=== PATIENT | male | born 1995 | race Hispanic/Latino ===

== ENCOUNTER 2018-10-18 08:53 | Emergency (ER) | payer MEDICAID ==
[2018-10-18 09:17] VITALS: O2SAT 100
--- NOTE | 2018-10-18 09:28 | ED PDOC ---
HPI: SOB/CHF/COPD Time Seen by Provider: 10/18/18 09:22 Chief Complaint (Nursing): Respiratory Distress Chief Complaint (Provider): Back pain History Per: Patient History/Exam Limitations: no limitations Additional Complaint(s): Pt reports sudden onset R sided back pain this AM. 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 Pt has h/o two chest tubes on R and one on L in past. Denies CP, cough, fever. Past Medical History Reviewed: Nursing Documentation, Vital Signs Vital Signs: Last Vital Signs Temp Pulse 79 10/18/18 09:22 Resp 23 10/18/18 09:22 BP 115/76 10/18/18 09:22 Pulse Ox 100 10/18/18 09:22 - Medical History Other PMH: Liz Danlos - Surgical History Other surgeries: Thoracostomy, R rotator cuff - Family History Family History: States: Unknown Family Hx - Social History Current smoker - smoking cessation education provided: No Alcohol: None - Home Medications Home Medications: Ambulatory Orders Medication Instructions Recorded Ascorbic Acid [Vitamin C 500 mg 500 mg PO DAILY 10/18/18 Tab] Atenolol [Tenormin] 50 mg PO DAILY 10/18/18 Ferrous Sulfate [Feosol] 325 mg PO DAILY 10/18/18 - Allergies Allergies/Adverse Reactions: Allergies Allergy/AdvReac Type Severity Reaction Status Date / Time No Known Allergies Allergy Verified 10/18/18 09:24 Review of Systems Constitutional: Negative for: Fever, Chills Cardiovascular: Negative for: Chest Pain, Palpitations Respiratory: Positive for: Shortness of Breath. Negative for: Cough Musculoskeletal: Positive for: Back Pain Neurological: Negative for: Headache Physical Exam - Reviewed Nursing Documentation Reviewed: Yes Vital Signs Reviewed: Yes - Physical Exam Appears: Positive for: Well, No Acute Distress (Speaking full sentences) Head Exam: Positive for: ATRAUMATIC, NORMAL INSPECTION Skin: Positive for: Normal Color, Warm, Dry Eye Exam: Positive for: Normal appearance, EOMI, PERRL Neck: Positive for: Normal, Painless ROM, Supple Cardiovascular/Chest: Positive for: Regular Rate, Rhythm Respiratory: Positive for: Decreased Breath Sounds (R base). Negative for: Accessory Muscle Use, Crackles, Respiratory Distress Gastrointestinal/Abdominal: Positive for: Bowel Sounds Back: Positive for: Normal Inspection, Other (R mid back pain) Extremity: Positive for: Normal ROM Neurologic/Psych: Positive for: Alert, Oriented - Laboratory Results Result Diagrams: 10/18/18 09:30 10/18/18 09:30 - ECG O2 Sat by Pulse Oximetry: 100 - Critical Care Total Time (In Min): 75 Medical Decision Making Medical Decision Makin yo male with h/o Liz Danlos syndrome with R back pain. - labs - EKG - CXR - CT angio chest - IVF Accession No. : [id number] Patient Name / ID : ALISSA SPENCER / [id number] Exam Date : 10/18/2018 09:16:14 ( Approved ) Study Comment : Sex / Age : M / 23Y Creator : Tito Ku MD Dictator : Tito Ku MD Renewals Manager : Hospice Care Consultant : Tito Ku MD Approver2 : Report Date : 10/18/2018 09:55:48 My Comment : Date of service: 10/18/2018 HISTORY: R back pain, h/o hemothoraces COMPARISON: None available. TECHNIQUE: Chest one view . FINDINGS: LUNGS: There is evidence of postsurgical change of the right lung with multiple sutures seen in the right upper and lower lung real. There is consolidation versus mass in the right lower lung field measuring approximately 11 x 7.9 cm and demonstrating lobulation as well as areas of lucency. Area of focal scarring noted in the right upper lobe. Postsurgical changes also noted of the left lung with sutures at the left lung apex. PLEURA: Small bilateral pleural effusions, left greater than right. CARDIOVASCULAR: Heart size is within normal limits. No atherosclerotic calcification present. There are mediastinal surgical clips. OSSEOUS STRUCTURES: No acute fracture identified. Mild dextroscoliosis of the thoracic spine, centered at the mid level. VISUALIZED UPPER ABDOMEN: Unremarkable. OTHER FINDINGS: None. IMPRESSION: Postsurgical changes of the lungs as above. There is consolidation versus mass in the right lower lung field measuring approximately 11 x 7.9 cm and de monstrating lobulation as well as areas of lucency. Consider CT chest for further evaluation. Accession No. : [id number] Patient Name / ID : ALISSA SPENCER / [id number] Exam Date : 10/18/2018 09:44:50 ( Approved ) Study Comment : Sex / Age : M / 23Y Creator : Tito Ku MD Dictator : Tito Ku MD Renewals Manager : Hospice Care Consultant : Tito Ku MD Approver2 : Report Date : 10/18/2018 11:14:52 My Comment : PROCEDURE: CT Angiography Chest, Abdomen and Pelvis with and without intravenous contrast HISTORY: R back pain, Liz Danlos COMPARISON: Chest x-ray performed earlier same day TECHNIQUE: Contiguous axial images of the chest, abdomen and pelvis were obtained in the phase of aortic enhancement. A noncontrast enhanced CT of the chest was also obtained to evaluate for possible intramural thrombus. Coronal and sagittal reformats were generated. IV dose administered: 99 cc Visipaque 320 IV contrast Radiation dose: Total exam DLP = 795.43 mGy-cm. This CT exam was performed using one or more of the following dose reduction techniques: Automated exposure control, adjustment of the mA and/or kV according to patient size, and/or use of iterative reconstruction technique. FINDINGS: CT ANGIOGRAPHY OF THE CHEST WITH & WITHOUT CONTRAST: AORTA (CHEST AND ABDOMEN): The thoracic and abdominal aorta are unremarkable, without aneurysm, dissection or rupture. No intramural thrombus identified in the thoracic aorta on the non-contrast ct of the chest. Thoracic and abdominal aorta are normal in caliber. The celiac axis, superior mesenteric artery, inferior mesenteric artery and the renal arteries are patent. The pelvic arteries are unremarkable. LUNGS: Large cavitary mass noted occupying majority of the right lower lobe. The solid component of the cavitary lesion measures approximately 9.8 x 7.5 cm (CC by ML). This may represent a fungal ball such as aspergilloma; hematoma is also a consideration. There is beading/nodularity along the minor fissure, likely small foci of hemorrhage. Mild right basilar atelectasis. The trachea and major segmental bronchi are patent. MEDIASTINUM: Heart size is mildly enlarged. There is no significant pericardial effusion. LYMPH NODES: There is no significant axillary, mediastinal, or hilar lymphadenopathy. PLEURA: Focal area of pleural thickening noted of the right lower lobe posteriorly measuring 8 x 3.1 cm; differential considerations include hematoma or possibly granulation tissue. Small adjacent right pleural effusion. There are areas of hyperdensity along the posterior medial aspects of the pleura measuring 3.6 cm and 1.3 cm as well as anteromedial aspects, measuring 1.6 cm, 3.2 x 5.9 cm, and 1.7 cm. These likely represent small hematomas. These all demonstrate areas of focal increased density within, suggestive of active hemorrhage. There are additional areas of hyperdensity in the left upper lung medially measuring 2.9 x 1.2 cm and right upper lung medially measuring 1.9 x 1 cm, also likely hematomas. Areas of focal increased density are noted within these regions, suggestive of active hemorrhage. Additional smaller areas of hyperdenisty/hematomas also seen. BONES: No acute fracture identified. OTHER FINDINGS: Visualized portions of the thyroid gland are unremarkable. CT ANGIOGRAPHY OF THE ABDOMEN AND PELVIS WITH CONTRAST: LIVER: Unremarkable. GALLBLADDER AND BILE DUCTS: Unremarkable. PANCREAS: Unremarkable. SPLEEN: Enlarged measuring 14.2 cm in transverse dimension. Craniocaudad dimension. ADRENALS: Unremarkable. KIDNEYS AND URETERS: Unremarkable. No hydronephrosis. VASCULATURE: See above STOMACH AND BOWEL: There is no abnormal small or large bowel dilatation. Mild scattered diverticulosis of the descending colon without evidence of diverticulitis. APPENDIX: Normal appendix. PERITONEUM: Unremarkable. No free fluid. No free air. LYMPH NODES: There is no significant abdominal or pelvic lymphadenopathy BLADDER: Unremarkable. REPRODUCTIVE: Prostate is unremarkable. There is fullness of the bilateral seminal vesicles. BONES: No acute fracture identified. OTHER FINDINGS: None. IMPRESSION: Large cavitary lesion occupying majority of the right lower lobe with an internal solid component measuring 9.8 cm. Differential considerations include fungal ball such as aspergilloma, tuberculosis, or possible hemorrhage/hematoma. Multiple areas of hyperdensity within the periphery of the lungs as described above with internal areas of increased density. Findings likely represent hematomas with active areas of hemorrhage. Large area of focal pleural thickening along the right lower lobe posteriorly measuring up to 8 cm, also suspicious for hematoma. Granulation tissue could also be considered. Additional findings as above. 11:[address] Canales (Thoracic surgeon), call optometrist president/practice owner to evaluate patient. 11:35 Spoke to surgical attendant. ETA one hour. 14:00 optometrist president/practice owner recommends pt be transferred to tertiary care center (as per Dr. Canales). 14:[address] Efrain Sanchez (CT surgery), accepts transfer to [facility], ER to ER. 15:05 Pt to be transferred to [address] [place] [address] ([address]). Disposition - Clinical Impression Clinical Impression: Lung hemorrhage - Patient ED Disposition Is Patient to be Admitted: Transfer of Care - Disposition Disposition Time: 15:19 Condition: GUARDED Forms: [employer] (E[place]ian)
[2018-10-18] MEDS ORDERED: Sodium Chloride 0.9% 1,000 ML IV STA (09:31)
[2018-10-18] MEDS ORDERED: Sodium Chloride 0.9% 50 ML IV ONE (09:43)
[2018-10-18] MEDS ORDERED: Iodixanol 320 MG/ML 100 ML BOTTLE IV ONE (09:43)
[2018-10-18 09:47] LABS: BASO % 0.7 % (0.0-2.0); EOS # 0.1 K/uL (0.0-0.7); EOS % 1.8 % (0.0-4.0); HEMOGLOBIN 13.7 g/dL (12.0-18.0); LYMPH # 0.8 K/uL (1.0-4.3); LYMPH % 24.2 % (20.0-40.0); MEAN CELL VOLUME 92.4 fl (80.0-94.0); MEAN CORPUSCULAR HEMOGLOBIN 30.3 pg (27.0-31.0); MEAN CORPUSCULAR HGB CONC 32.8 g/dL (33.0-37.0); MEAN PLATELET VOLUME 8.1 fl (7.2-11.7); MONO # 0.3 K/uL (0.0-0.8); MONO % 10.1 % (0.0-10.0); NEUT # 2.2 K/uL (1.8-7.0); NEUT % 63.2 % (50.0-75.0); NRBC % 0.2 % (0.0-0.0); RBC 4.52 Mil/uL (4.40-5.90); RED CELL DISTRIBUTION WIDTH 14.5 % (11.5-14.5); WHITE BLOOD COUNT 3.4 K/uL (4.8-10.8)
[2018-10-18 09:53] LABS: ALB/GLOB RATIO 1.3 (1.0-2.1); ALBUMIN 4.4 g/dL (3.5-5.0); ALT/SGPT 56 U/L (21-72); AST/SGOT 43 U/L (17-59); BLOOD UREA NITROGEN 12 mg/dl (9-20); CALCIUM 9.2 mg/dL (8.4-10.2); GFR NON-AFRICAN AMERICAN > 60
[2018-10-18 09:57] LABS: PROTHROMBIN TIME 11.7 Seconds (9.8-13.1)
[2018-10-18 09:59] LABS: PARTIAL THROMBOPLASTIN TIME 32.2 Seconds (25.6-37.1)
--- NOTE | 2018-10-18 09:59 | RAD ---
Date of service: 10/18/2018 HISTORY: R back pain, h/o hemothoraces COMPARISON: None available. TECHNIQUE: Chest one view . FINDINGS: LUNGS: There is evidence of postsurgical change of the right lung with multiple sutures seen in the right upper and lower lung real. There is consolidation versus mass in the right lower lung field measuring approximately 11 x 7.9 cm and demonstrating lobulation as well as areas of lucency. Area of focal scarring noted in the right upper lobe. Postsurgical changes also noted of the left lung with sutures at the left lung apex. PLEURA: Small bilateral pleural effusions, left greater than right. CARDIOVASCULAR: Heart size is within normal limits. No atherosclerotic calcification present. There are mediastinal surgical clips. OSSEOUS STRUCTURES: No acute fracture identified. Mild dextroscoliosis of the thoracic spine, centered at the mid level. VISUALIZED UPPER ABDOMEN: Unremarkable. OTHER FINDINGS: None. IMPRESSION: Postsurgical changes of the lungs as above. There is consolidation versus mass in the right lower lung field measuring approximately 11 x 7.9 cm and demonstrating lobulation as well as areas of lucency. Consider CT chest for further evaluation.
[2018-10-18 10:41] LABS: URINE BILIRUBIN NEGATIVE (NEGATIVE); URINE BLOOD NEGATIVE (NEGATIVE); URINE CLARITY CLEAR (Clear); URINE COLOR STRAW (YELLOW); URINE GLUCOSE (UA) NEG (NEGATIVE); URINE LEUKOCYTE ESTERASE NEG Leu/uL (Negative); URINE PROTEIN NEGATIVE (NEGATIVE); URINE UROBILINOGEN 0.2-1.0 mg/dL (0.2-1.0)
[2018-10-18] MEDS ORDERED: Morphine 4 MG/ML VIAL ONE ×3 (10:56→17:14)
[2018-10-18] MEDS ORDERED: Morphine 4 MG/ML VIAL IV STA ×4 (11:11→17:15)
--- NOTE | 2018-10-18 11:18 | CT ---
PROCEDURE: CT Angiography Chest, Abdomen and Pelvis with and without intravenous contrast HISTORY: R back pain, Liz Danlos COMPARISON: Chest x-ray performed earlier same day TECHNIQUE: Contiguous axial images of the chest, abdomen and pelvis were obtained in the phase of aortic enhancement. A noncontrast enhanced CT of the chest was also obtained to evaluate for possible intramural thrombus. Coronal and sagittal reformats were generated. IV dose administered: 99 cc Visipaque 320 IV contrast Radiation dose: Total exam DLP = 795.43 mGy-cm. This CT exam was performed using one or more of the following dose reduction techniques: Automated exposure control, adjustment of the mA and/or kV according to patient size, and/or use of iterative reconstruction technique. FINDINGS: CT ANGIOGRAPHY OF THE CHEST WITH & WITHOUT CONTRAST: AORTA (CHEST AND ABDOMEN): The thoracic and abdominal aorta are unremarkable, without aneurysm, dissection or rupture. No intramural thrombus identified in the thoracic aorta on the non-contrast ct of the chest. Thoracic and abdominal aorta are normal in caliber. The celiac axis, superior mesenteric artery, inferior mesenteric artery and the renal arteries are patent. The pelvic arteries are unremarkable. LUNGS: Large cavitary mass noted occupying majority of the right lower lobe. The solid component of the cavitary lesion measures approximately 9.8 x 7.5 cm (CC by ML). This may represent a fungal ball such as aspergilloma; hematoma is also a consideration. There is beading/nodularity along the minor fissure, likely small foci of hemorrhage. Mild right basilar atelectasis. The trachea and major segmental bronchi are patent. MEDIASTINUM: Heart size is mildly enlarged. There is no significant pericardial effusion. LYMPH NODES: There is no significant axillary, mediastinal, or hilar lymphadenopathy. PLEURA: Focal area of pleural thickening noted of the right lower lobe posteriorly measuring 8 x 3.1 cm; differential considerations include hematoma or possibly granulation tissue. Small adjacent right pleural effusion. There are areas of hyperdensity along the posterior medial aspects of the pleura measuring 3.6 cm and 1.3 cm as well as anteromedial aspects, measuring 1.6 cm, 3.2 x 5.9 cm, and 1.7 cm. These likely represent small hematomas. These all demonstrate areas of focal increased density within, suggestive of active hemorrhage. There are additional areas of hyperdensity in the left upper lung medially measuring 2.9 x 1.2 cm and right upper lung medially measuring 1.9 x 1 cm, also likely hematomas. Areas of focal increased density are noted within these regions, suggestive of active hemorrhage. Additional smaller areas of hyperdenisty/hematomas also seen. BONES: No acute fracture identified. OTHER FINDINGS: Visualized portions of the thyroid gland are unremarkable. CT ANGIOGRAPHY OF THE ABDOMEN AND PELVIS WITH CONTRAST: LIVER: Unremarkable. GALLBLADDER AND BILE DUCTS: Unremarkable. PANCREAS: Unremarkable. SPLEEN: Enlarged measuring 14.2 cm in transverse dimension. Craniocaudad dimension. ADRENALS: Unremarkable. KIDNEYS AND URETERS: Unremarkable. No hydronephrosis. VASCULATURE: See above STOMACH AND BOWEL: There is no abnormal small or large bowel dilatation. Mild scattered diverticulosis of the descending colon without evidence of diverticulitis. APPENDIX: Normal appendix. PERITONEUM: Unremarkable. No free fluid. No free air. LYMPH NODES: There is no significant abdominal or pelvic lymphadenopathy BLADDER: Unremarkable. REPRODUCTIVE: Prostate is unremarkable. There is fullness of the bilateral seminal vesicles. BONES: No acute fracture identified. OTHER FINDINGS: None. IMPRESSION: Large cavitary lesion occupying majority of the right lower lobe with an internal solid component measuring 9.8 cm. Differential considerations include fungal ball such as aspergilloma, tuberculosis, or possible hemorrhage/hematoma. Multiple areas of hyperdensity within the periphery of the lungs as described above with internal areas of increased density. Findings likely represent hematomas with active areas of hemorrhage. Large area of focal pleural thickening along the right lower lobe posteriorly measuring up to 8 cm, also suspicious for hematoma. Granulation tissue could also be considered. Additional findings as above.
--- NOTE | 2018-10-18 14:50 | CP.PCM.CON ---
History of Present Illness - History of Present Illness History of Present Illness: 23M with PMHx of Eharsenio Hesters, spontaneous pneumothorax x3 s/p b/l pleurodesis ~5 years ago, presents to [facility] ED with complaints of shortness of breath and difficulty breathing. Patient states pain was of sudden onset this morning. Pat ient states pain is similar to the time where he was found to have a hemothorax about 1 month ago. Patient was hospitalized in [facility] where they conservatively managed his condition. Patient reports following up with specialists at [facility] and states at time of visit they recommended avoiding surgery unless complications were to arise. At times of examination patient was laying in bed with 2L NC saturating at 100%. Grimacing each time he inspires. States pain is localized in right lower hemithorax region. Denies fever/chills, nausea/vomiting, chest pain, abdominal pain, nausea/vomiting, diarrhea, dysuria. PMHx: as stated above PSurgHx: as stated above Allergies: NKDA Soc Hx: Denies smoking, denies illicit drug use Review of Systems - Review of Systems Review of Systems: 10 pt ROS unremarkable except as stated in HPI Past Patient History - Infectious Disease Hx of Infectious Diseases: None - Past Social History Alcohol: None - HEMATOLOGICAL/ONCOLOGICAL Other/Comment: BETTY-DANLOS SYNDROME - PSYCHIATRIC Hx Substance Use: No - SURGICAL HISTORY Other/Comment: HEMOTHORAX W/ CHEST TUBES- RIGHT LUNG X 2, LEFT LUNG X 1. ROTATOR CUFF REPAIR RIGHT SIDE. - ANESTHESIA Hx Anesthesia: Yes Hx Anesthesia Reactions: No Hx Malignant Hyperthermia: No Meds Allergies/Adverse Reactions: Allergies Allergy/AdvReac Type Severity Reaction Status Date / Time No Known Allergies Allergy Verified 10/18/18 09:24 Physical Exam - Constitutional Appears: Non-toxic, No Acute Distress - Head Exam Head Exam: NORMOCEPHALIC - Eye Exam Eye Exam: EOMI - ENT Exam ENT Exam: Mucous Membranes Moist - Respiratory Exam Respiratory Exam: Decreased Breath Sounds. absent: Accessory Muscle Use Additional comments: decrease breaths sounds in right lung Difficulty with deep inspiration - Cardiovascular Exam Cardiovascular Exam: +S1, +S2 - GI/Abdominal Exam GI & Abdominal Exam: Soft. absent: Tenderness - Neurological Exam Neurological exam: Alert, Oriented x3 - Psychiatric Exam Psychiatric exam: Normal Mood - Skin Skin Exam: Intact, Warm Results - Vital Signs Recent Vital Signs: Last Vital Signs Temp 98.2 F 10/18/18 10:50 Pulse 88 10/18/18 13:22 Resp 28 H 10/18/18 13:22 BP 123/76 10/18/18 13:22 Pulse Ox 100 10/18/18 14:26 - Labs Result Diagrams: 10/18/18 09:30 10/18/18 09:30 Labs: Laboratory Results - last 24 hr 10/18/18 10/18/18 10/18/18 09:30 09:30 09:30 WBC 3.4 L RBC 4.52 Hgb 13.7 Hct 41.7 MCV 92.4 MCH 30.3 MCHC 32.8 L RDW 14.5 Plt Count 285 MPV 8.1 Neut % (Auto) 63.2 Lymph % (Auto) 24.2 [place] % (Auto) 10.1 H Eos % (Auto) 1.8 Baso % (Auto) 0.7 Neut # (Auto) 2.2 Lymph # (Auto) 0.8 L [place] # (Auto) 0.3 Eos # (Auto) 0.1 Baso # (Auto) 0.0 PT INR APTT Sodium 141 Potassium 4.0 Chloride 103 Carbon Dioxide 28 Anion Gap 14 BUN 12 Creatinine 0.6 L Est GFR ( Amer) > 60 Est GFR (Non-Af Amer) > 60 Random Glucose 100 Calcium 9.2 Total Bilirubin 0.5 AST 43 ALT 56 Alkaline Phosphatase 76 Total Protein 7.8 Albumin 4.4 Globulin 3.4 Albumin/Globulin Ratio 1.3 Urine Color Urine Clarity Urine pH Ur Specific [place] Urine Protein Urine Glucose (UA) Urine Ketones Urine Blood Urine Nitrate Urine Bilirubin Urine Urobilinogen Ur Leukocyte Esterase Urine RBC (Auto) Urine Microscopic WBC Blood Type O POSITIVE Blood Type Confirm Antibody Screen Negative BBK History Checked No verified bt 10/18/18 10/18/18 10/18/18 09:30 10:25 10:32 WBC RBC Hgb Hct MCV MCH MCHC RDW Plt Count MPV Neut % (Auto) Lymph % (Auto) [place] % (Auto) Eos % (Auto) Baso % (Auto) Neut # (Auto) Lymph # (Auto) [place] # (Auto) Eos # (Auto) Baso # (Auto) PT 11.7 INR 1.0 APTT 32.2 Sodium Potassium Chloride Carbon Dioxide Anion Gap BUN Creatinine Est GFR ( Amer) Est GFR (Non-Af Amer) Random Glucose Calcium Total Bilirubin AST ALT Alkaline Phosphatase Total Protein Albumin Globulin Albumin/Globulin Ratio Urine Color Straw Urine Clarity Clear Urine pH 7.0 Ur Specific [place] > 1.060 H Urine Protein Negative Urine Glucose (UA) Neg Urine Ketones Negative Urine Blood Negative Urine Nitrate Negative Urine Bilirubin Negative Urine Urobilinogen 0.2-1.0 Ur Leukocyte Esterase Neg Urine RBC (Auto) 1 Urine Microscopic WBC 1 Blood Type Blood Type Confirm O POSITIVE Antibody Screen BBK History Checked Assessment & Plan - Assessment and Plan (Free Text) Assessment: 23M with right pleuritic pain and small active hemorrhages noted on CTA Plan: -Patient currently stable saturating at 100% on 2L NC -Due to patient's extensive cardiothoracic history and history of Laina Fierro recommend transfer to higher care facility D/w Dr. Parker Rodriguez PGY3
[2018-10-18 16:43] VITALS: BP 119/63; PULSE 83; RESP 20; TEMP 98.7
[2018-10-18] MEDS ORDERED: Morphine 4 MG/ML VIAL IV ONE (17:15)
--- NOTE | 2018-10-18 20:21 | CARD ---
APPROVED REPORT Date of service: 10/18/2018 EKG Measurement Heart [id number] <Conclusion> Normal sinus rhythm Normal ECG
== END 2018-10-18 17:22 | disposition short-term general hospital (02) ==
LOC: H.ER 08:53
DX: R04.89 Hemorrhage from other sites in respiratory passages (principal); Q79.6 Ehlers-Danlos syndromes; R07.81 Pleurodynia; Z79.899 Other long term (current) drug therapy; R06.02 Shortness of breath; M54.9 Dorsalgia, unspecified
CPT/HCPCS: 71045; 71275; 74175; 80053; 81003; 85025; 85610; 85730; 86850; 86900; 93005; 96360; 99285; J2270; J2405; J7030; Q9967

== ENCOUNTER 2018-12-07 20:55 | Inpatient (IN) | payer MEDICAID, OTHER ==
--- NOTE | 2018-12-07 21:15 | ED PDOC ---
HPI: Influenza Chief Complaint: Cough, Cold, Congestion Past Medical History Vital Signs: Last Vital Signs Temp 97.6 F 12/07/18 20:58 Pulse 65 12/07/18 20:58 Resp 18 12/07/18 20:58 BP 133/85 12/07/18 20:58 Pulse Ox 100 12/07/18 20:58 - Family History Family History: States: Unknown Family Hx - Home Medications Home Medications: Ambulatory Orders Medication Instructions Recorded Ascorbic Acid [Vitamin C 500 mg 500 mg PO DAILY 10/18/18 Tab] Atenolol [Tenormin] 50 mg PO DAILY 10/18/18 Ferrous Sulfate [Feosol] 325 mg PO DAILY 10/18/18 - Allergies Allergies/Adverse Reactions: Allergies Allergy/AdvReac Type Severity Reaction Status Date / Time No Known Allergies Allergy Verified 12/07/18 20:57 - ECG O2 Sat by Pulse Oximetry: 100 Disposition - Disposition
[2018-12-07] MEDS ORDERED: Sodium Chloride 0.9% 1,000 ML IV STA (21:22)
[2018-12-07 21:37] LABS: BASO % 0.5 % (0.0-2.0); EOS # 0.1 K/uL (0.0-0.7); EOS % 1.6 % (0.0-4.0); HEMOGLOBIN 12.3 g/dL (12.0-18.0); LYMPH # 2.1 K/uL (1.0-4.3); LYMPH % 29.2 % (20.0-40.0); MEAN CELL VOLUME 80.7 fl (80.0-94.0); MEAN CORPUSCULAR HEMOGLOBIN 26.3 pg (27.0-31.0); MEAN CORPUSCULAR HGB CONC 32.6 g/dL (33.0-37.0); MEAN PLATELET VOLUME 7.8 fl (7.2-11.7); MONO # 0.6 K/uL (0.0-0.8); MONO % 8.1 % (0.0-10.0); NEUT # 4.3 K/uL (1.8-7.0); NEUT % 60.6 % (50.0-75.0); RBC 4.66 Mil/uL (4.40-5.90); RED CELL DISTRIBUTION WIDTH 18.3 % (11.5-14.5); WHITE BLOOD COUNT 7.1 K/uL (4.8-10.8)
[2018-12-07 21:46] LABS: PROTHROMBIN TIME 11.6 Seconds (9.8-13.1)
--- NOTE | 2018-12-07 21:47 | ED PDOC ---
HPI: CCC, URI, Sore Throat Time Seen by Provider: 12/07/18 21:14 Chief Complaint (Nursing): Cough, Cold, Congestion History Per: Patient Have you had recent travel within the past 21 days to any of the following countries: [place], [place], [place] or [place]?: No Onset/Duration Of Symptoms: Hrs Current Symptoms Are (Timing): Intermittent Episodes Additional Complaint(s): Hx of Ehler Danlos syndrome presenting with tasting blood in the back of his throat. States that he blood vessel burst in his R lung in 2018 and he states that the tasting of his blood was one of the earlier symptoms. He has had multiple chest tubes and recently had a thorcoscopic exploration with the intention of a R lower lobectomy but it was unsuccessful because of scar tissue (At [facility]). He also had a bronchial trach procedure to remove fluid on the R side of the lung. Today he states he didn't actually cough up any blood but he is coughing and he tastes the blood. Denies chest pain, back pain, or shortness of breath currently. Patient states that he feels lightheaded but states he did not eat all day. Past Medical History Reviewed: Historical Data, Nursing Documentation, Vital Signs Vital Signs: Last Vital Signs Temp 97.6 F 12/07/18 20:58 Pulse 65 12/07/18 20:58 Resp 18 12/07/18 20:58 BP 133/85 12/07/18 20:58 Pulse Ox 100 12/07/18 20:58 - Medical History Other PMH: Ehler-Danlos - Family History Family History: States: Unknown Family Hx - Home Medications Home Medications: Ambulatory Orders Medication Instructions Recorded Atenolol [Tenormin] 50 mg PO DAILY 10/18/18 - Allergies Allergies/Adverse Reactions: Allergies Allergy/AdvReac Type Severity Reaction Status Date / Time No Known Allergies Allergy Verified 12/07/18 20:57 Review of Systems ROS Statement: Except As Marked, All Systems Reviewed And Found Negative Respiratory: Positive for: Cough. Negative for: Hemoptysis Physical Exam - Reviewed Nursing Documentation Reviewed: Yes Vital Signs Reviewed: Yes - Physical Exam Appears: Positive for: Well, Non-toxic, No Acute Distress Head Exam: Positive for: ATRAUMATIC, NORMAL INSPECTION, NORMOCEPHALIC Skin: Positive for: Normal Color, Warm, DRY Eye Exam: Positive for: EOMI, Normal appearance, PERRL ENT: Positive for: Normal ENT Inspection Neck: Positive for: Normal, Painless ROM Cardiovascular/Chest: Positive for: Regular Rate, Rhythm Respiratory: Positive for: Other (Dullness on R side of lung) Gastrointestinal/Abdominal: Positive for: Normal Exam, Soft Back: Positive for: Normal Inspection Extremity: Positive for: Normal ROM Neurological/Psych: Positive for: Awake, Alert, Normal Tone - Laboratory Results Result Diagrams: 12/07/18 21:30 12/07/18 21:30 - ECG O2 Sat by Pulse Oximetry: 100 Medical Decision Making Medical Decision Making: A/P: Hx of Ehler Danlos syndrome presenting with cough, tasting of blood --Given history, will rule out bleeding of blebs in lung --Currently stable, vitals normal, able to walk around E.D. --Will get labs, CXR, CT, and re-eval 2303 CT Chest W/Contrast FINDINGS: LUNGS: An approximately 10.9 x 6.1 x 7.7 cm ovoid air space opacity is seen in the posterior mid upper-superior right lower lobe, having a large central zone of d ecreased attenuation; which ranges in density between 21.0-33.5 HU. A small pocket of gas seen in the superior aspect of the central collection. These findings are thought consistent with pneumonic consolidation with large pulmonary abscess formation. No pulmonary mass. PLEURAL SPACES: No pneumothorax evident. An associated small right pleural effusion is present in the lung base. Focal pleural thickening is seen in the postero-medial left lung base. HEART: Mild cardiomegaly. No pericardial effusion. LYMPH NODES: No lymphadenopathy is evident. BONES: No focal osseous abnormality or acute fracture. Dextroscoliotic curvature is seen within the thoracic spine with the apex at T5. UPPER ABDOMEN: The upper abdomen demonstrates evidence of duodenitis and jejunitis. There is borderline splenomegaly also noted. IMPRESSION: 1. Pneumonic consolidation with large pulmonary abscess formation in the posterior right mid-upper/lower thorax. 2. Small right pleural effusion. 3. Minimal focal pleural thickening in the postero-medial left lung base. 4. Mild cardiomegaly. 5. Evidence of duodenitis and jejunitis in the visualized upper abdomen. 6. Borderline splenomegaly. Spoke with surgical scheduler Dr. Gee Degroot who discussed case with Dr. Johnson of vascular surgery Will give Unasyn and Clinda Case discussed with Dr. Brenda Unger of pulmonology to be consulted in the morning Disposition - Clinical Impression Clinical Impression: Lung abscess - Patient ED Disposition Is Patient to be Admitted: Yes Counseled Patient/Family Regarding: Studies Performed, Diagnosis - Disposition Disposition Time: 23:56 Condition: FAIR
[2018-12-07 21:49] LABS: PARTIAL THROMBOPLASTIN TIME 32.8 Seconds (25.6-37.1)
[2018-12-07] MEDS ORDERED: Iohexol 300 100 ML IJ ONE (21:57)
[2018-12-07] MEDS ORDERED: Sodium Chloride 0.9% 50 ML IV ONE (21:57)
[2018-12-07 22:01] LABS: ALB/GLOB RATIO 1.1 (1.0-2.1); ALBUMIN 4.3 g/dL (3.5-5.0); ALT/SGPT 27 U/L (21-72); AST/SGOT 37 U/L (17-59); BLOOD UREA NITROGEN 11 mg/dl (9-20); CALCIUM 9.1 mg/dL (8.4-10.2); GFR NON-AFRICAN AMERICAN > 60
--- NOTE | 2018-12-07 23:36 | CP.PCM.CON ---
History of Present Illness - History of Present Illness History of Present Illness: Cardiothoracic Surgery Consult Note for Dr. Edgar Reason for consult: Right sided lung abscess 23 M with PMH that includes PMH of Liz-danlos, spontaneous pneumothoraces s/p chest tubes, hemoptysis, bilateral pleurodesis presents with right sided pneumonia and lung abscess. Patient was seen and evaluated in the ED. Patient reports that he was at home when he began tasting blood in the back of his throat. At the same time, He developed an episode of dizziness/lightheadedness. Patient reports that he hemoptysis from Right lung vessel rupture in 2018. The concern for recurrence prompted him to call EMS to bring him to [facility]. He has had history of multiple chest tubes for pnumothoraces and plureal effusion. He also previously had bilateral pleurodesis. Patient recently had a thorcoscopic exploration at [facility] with the intention of a R lower lobectomy but it was unable to be completed due to an abundance of scar tissue. Patient had a bronchoscopy done in attempt to drain blood at time of hemoptysis in the Right lung. Denies fever/chills chest pain, shortness of breath, palpitations, abd pain, nausea/vomiting, diarrhea, constipation, incontinence, urinary symptoms. PMH: as above PSH: Bronchoscopy, bilateral pleurodesis, chest tubes x 3, VATS ALL: NKDA Review of Systems - Review of Systems All systems: reviewed and no additional remarkable complaints except (as per HPI) Past Patient History - Infectious Disease Hx of Infectious Diseases: None - Past Social History Smoking Status: Never Smoked - CARDIAC Hx Cardiac Disorders: Yes Hx Circulatory Problems: Yes (Vascular Liz Danlos) - PULMONARY Hx Respiratory Disorders: No - NEUROLOGICAL Hx Neurological Disorder: No - HEENT Hx HEENT Problems: No - RENAL Hx Chronic Kidney Disease: No - ENDOCRINE/METABOLIC Hx Endocrine Disorders: No - HEMATOLOGICAL/ONCOLOGICAL Other/Comment: LIZ-DANLOS SYNDROME - PSYCHIATRIC Hx Substance Use: No - SURGICAL HISTORY Hx Surgeries: Yes Other/Comment: HEMOTHORAX W/ CHEST TUBES- RIGHT LUNG X 2, LEFT LUNG X 1. ROTATOR CUFF REPAIR RIGHT SIDE. - ANESTHESIA Hx Anesthesia: Yes Hx Anesthesia Reactions: No Hx Malignant Hyperthermia: No Meds Allergies/Adverse Reactions: Allergies Allergy/AdvReac Type Severity Reaction Status Date / Time No Known Allergies Allergy Verified 12/07/18 20:57 Physical Exam - Constitutional Appears: Well, Non-toxic, No Acute Distress - Head Exam Head Exam: ATRAUMATIC, NORMOCEPHALIC - Eye Exam Eye Exam: EOMI, Normal appearance Pupil Exam: PERRL - ENT Exam ENT Exam: Mucous Membranes Moist - Respiratory Exam Respiratory Exam: Decreased Breath Sounds (R upper faviola field), NORMAL BREATHING PATTERN. absent: Accessory Muscle Use, Respiratory Distress, Stridor - Cardiovascular Exam Cardiovascular Exam: REGULAR RHYTHM, +S1, +S2 - GI/Abdominal Exam GI & Abdominal Exam: Normal Bowel Sounds, Soft, Tenderness. absent: Distended, Firm, Guarding, Hernia, Rebound, Rigid - Rectal Exam Rectal Exam: Deferred - Extremities Exam Extremities exam: Positive for: normal capillary refill, pedal pulses present. Negative for: calf tenderness - Back Exam Back exam: absent: CVA tenderness (L), CVA tenderness (R) - Neurological Exam Neurological exam: Alert, CN II-XII Intact, Normal Gait, Oriented x3 - Psychiatric Exam Psychiatric exam: Normal Affect, Normal Mood - Skin Skin Exam: Dry, Intact, Normal Color, Warm Results - Vital Signs Recent Vital Signs: Last Vital Signs Temp 97.6 F 12/07/18 20:58 Pulse 72 12/07/18 23:31 Resp 18 12/07/18 23:31 BP 109/58 L 12/07/18 23:31 Pulse Ox 100 12/07/18 23:31 - Labs Result Diagrams: 12/07/18 21:30 12/07/18 21:30 Labs: Laboratory Results - last 24 hr 12/07/18 12/07/18 12/07/18 21:30 21:30 21:30 WBC 7.1 D RBC 4.66 Hgb 12.3 Hct 37.6 MCV 80.7 D MCH 26.3 L MCHC 32.6 L RDW 18.3 H Plt Count 263 MPV 7.8 Neut % (Auto) 60.6 Lymph % (Auto) 29.2 [place] % (Auto) 8.1 Eos % (Auto) 1.6 Baso % (Auto) 0.5 Neut # (Auto) 4.3 Lymph # (Auto) 2.1 [place] # (Auto) 0.6 Eos # (Auto) 0.1 Baso # (Auto) 0.0 PT 11.6 INR 1.0 APTT 32.8 Sodium 141 Potassium 4.1 Chloride 103 Carbon Dioxide 27 Anion Gap 15 BUN 11 Creatinine 0.6 L Est GFR ( Amer) > 60 Est GFR (Non-Af Amer) > 60 Random Glucose 97 Calcium 9.1 Total Bilirubin 0.3 AST 37 ALT 27 Alkaline Phosphatase 119 Troponin I 0.0130 Total Protein 8.0 Albumin 4.3 Globulin 3.7 Albumin/Globulin Ratio 1.1 Blood Type Antibody Screen BBK History Checked 12/07/18 21:30 WBC RBC Hgb Hct MCV MCH MCHC RDW Plt Count MPV Neut % (Auto) Lymph % (Auto) [place] % (Auto) Eos % (Auto) Baso % (Auto) Neut # (Auto) Lymph # (Auto) [place] # (Auto) Eos # (Auto) Baso # (Auto) PT INR APTT Sodium Potassium Chloride Carbon Dioxide Anion Gap BUN Creatinine Est GFR ( Amer) Est GFR (Non-Af Amer) Random Glucose Calcium Total Bilirubin AST ALT Alkaline Phosphatase Troponin I Total Protein Albumin Globulin Albumin/Globulin Ratio Blood Type O POSITIVE Antibody Screen Negative BBK History Checked Patient has bt Assessment & Plan - Assessment and Plan (Free Text) Assessment: 23M with PMH of Liz-danlos, spontaneous pneumothoracex, hemoptysis, bilateral pleurodesis presents with right sided pneumonia and lung abscess Plan: IV fluids IV abx Sputum cultures Incentive Spirometry/Flutter valve Duonebs PRN Recommend ID consult Will continue to follow [facility] with Dr. Herve Degroot PGY2 - Date & Time Date: 12/08/18 Time: 00:26
[2018-12-07] MEDS ORDERED: Clindamycin in NS 300 MG/50 ML BAG IVPB STA (23:58)
[2018-12-08] MEDS ORDERED: Sodium Chloride 3% for Inhalation 4 ML VIAL.NEB IH PRN (00:22)
[2018-12-08] MEDS ORDERED: Albuterol-Ipratrop 3 mg / 0.5 (3 ml) UD INH PRN (00:23)
[2018-12-08] MEDS: Lactated Ringer's 1,000 ML IV SCH ×2 (00:56→10:55)
[2018-12-08] MEDS: Meropenem 1 GM in Sodium Chloride 0.9% 100 ML IVPB SCH ×3 (02:32→17:00)
--- NOTE | 2018-12-08 08:03 | RAD ---
Date of service: 12/07/2018 HISTORY: hx of Ehler Danlos, tasting blood, hx of blebs COMPARISON: No prior. TECHNIQUE: Chest PA and lateral FINDINGS: LUNGS: Large patchy density in the right upper lung field which correlation with CT scan of the chest is recommended. PLEURA: No significant pleural effusion identified. No pneumothorax apparent. CARDIOVASCULAR: No aortic atherosclerotic calcification present. Normal cardiac size. No pulmonary vascular congestion. OSSEOUS STRUCTURES: No significant abnormalities. VISUALIZED UPPER ABDOMEN: Normal. OTHER FINDINGS: None. IMPRESSION: Large patchy density in the right upper lung field which correlation with CT scan of the chest is recommended.
--- NOTE | 2018-12-08 09:24 | CT ---
Date of service: 12/07/2018 PROCEDURE: CT Chest with contrast (Pulmonary Angiogram) HISTORY: hx of Ehler-Danlos presenting with hemoptysis COMPARISON: None available. TECHNIQUE: Axial computed tomography images were obtained of the chest in the pulmonary arterial phase of enhancement. Coronal and sagittal reformatted images were created and reviewed. Intravenous contrast dose: Radiation dose: Total exam DLP = 196.1 mGy-cm. This CT exam was performed using one or more of the following dose reduction techniques: Automated exposure control, adjustment of the mA and/or kV according to patient size, and/or use of iterative reconstruction technique. FINDINGS: PULMONARY ARTERIES: Unremarkable. No pulmonary embolism. AORTA: No acute findings. No thoracic aortic aneurysm. No aortic atherosclerotic calcification or mural plaque present. LUNGS: Pneumonic consolidation with large pulmonary abscess formation in the posterior right mid upper/lower thorax. The abscess measures 10.9 centimeters. Small pocket of gas in the superior aspect of the central collection. PLEURAL SPACES: Focal pleural thickening along the left posterior medial lung base with small right pleural effusion. HEART: Mild cardiomegaly. No significant pericardial effusion. LYMPH NODES: No lymphadenopathy. BONES, CHEST WALL: Unremarkable. No fracture or destructive lesion OTHER FINDINGS: Unremarkable. IMPRESSION: Pneumonic consolidation with large pulmonary abscess formation in the posterior right mid upper/lower thorax.
[2018-12-08 10:20] LABS: BASO % 0.5 % (0.0-2.0); EOS # 0.1 K/uL (0.0-0.7); EOS % 1.6 % (0.0-4.0); HEMOGLOBIN 11.9 g/dL (12.0-18.0); LYMPH # 1.2 K/uL (1.0-4.3); LYMPH % 23.4 % (20.0-40.0); MEAN CELL VOLUME 79.9 fl (80.0-94.0); MEAN CORPUSCULAR HEMOGLOBIN 26.2 pg (27.0-31.0); MEAN CORPUSCULAR HGB CONC 32.7 g/dL (33.0-37.0); MEAN PLATELET VOLUME 8.2 fl (7.2-11.7); MONO # 0.4 K/uL (0.0-0.8); MONO % 8.4 % (0.0-10.0); NEUT # 3.4 K/uL (1.8-7.0); NEUT % 66.1 % (50.0-75.0); RBC 4.53 Mil/uL (4.40-5.90); RED CELL DISTRIBUTION WIDTH 18.6 % (11.5-14.5); WHITE BLOOD COUNT 5.2 K/uL (4.8-10.8)
[2018-12-08 10:30] LABS: BLOOD UREA NITROGEN 8 mg/dl (9-20); GFR NON-AFRICAN AMERICAN > 60
--- NOTE | 2018-12-08 18:59 | CP.PCM.PN ---
Subjective - Date & Time of Evaluation Date of Evaluation: 12/08/18 Time of Evaluation: 18:19 - Subjective Subjective: I D NOTE EMR REVIEWED,RECORDS FROM PREVIOUS HOSPITALIZATIONS REVIEWED .CT SCAN EVALUATED HAVE STARTED CLINDAMYCIN/MEROPENEM WILL CONTINUE TO RE EVAQLUATE IN AM Objective - Vital Signs/Intake and Output Vital Signs (last 24 hours): Temp Pulse Resp BP Pulse Ox 97.6 F 63 20 106/60 98 12/08/18 16:56 12/08/18 16:56 12/08/18 16:56 12/08/18 16:56 12/08/18 16:56 - Medications Medications: Current Medications Albuterol/Ipratropium (Duoneb 3 Mg/0.5 Mg (3 Ml) Ud) 3 ml INH RQ4 PRN PRN Reason: Shortness of Breath Atenolol (Tenormin) 50 mg PO DAILY ELADIA Last Admin: 12/08/18 10:56 Dose: 50 mg Clindamycin Phosphate 600 mg/ (Sodium Chloride) 54 mls @ 54 mls/hr IVPB Q8 ELADIA; Protocol Meropenem 1 gm/ Sodium (Chloride) 100 mls @ 100 mls/hr IVPB Q8 ELADIA; Protocol - Labs Labs: 12/08/18 09:50 12/08/18 09:50 PT 11.6 Seconds (9.8-13.1) 12/07/18 21:30 INR 1.0 12/07/18 21:30 APTT 32.8 Seconds (25.6-37.1) 12/07/18 21:30
--- NOTE | 2018-12-08 21:22 | CP.PCM.CON ---
History of Present Illness - History of Present Illness History of Present Illness: CT scan reviewed, chart reviewed, full consult to follow. Cont ABX as per ID, Past Patient History - Infectious Disease Hx of Infectious Diseases: None - Past Medical History & Family History Past Medical History?: Yes - Past Social History Smoking Status: Never Smoked - CARDIAC Hx Cardiac Disorders: Yes Hx Circulatory Problems: Yes (Vascular Liz Danlos) - PULMONARY Hx Respiratory Disorders: No - NEUROLOGICAL Hx Neurological Disorder: No - HEENT Hx HEENT Problems: No - RENAL Hx Chronic Kidney Disease: No - ENDOCRINE/METABOLIC Hx Endocrine Disorders: No - HEMATOLOGICAL/ONCOLOGICAL Other/Comment: LIZ-DANLOS SYNDROME - INTEGUMENTARY Hx Dermatological Problems: No - MUSCULOSKELETAL/RHEUMATOLOGICAL Hx Musculoskeletal Disorders: Yes Hx Falls: No Other/Comment: Vascular Liz Danlos x 8yrs - GASTROINTESTINAL Hx Gastrointestinal Disorders: No - GENITOURINARY/GYNECOLOGICAL Hx Genitourinary Disorders: No - PSYCHIATRIC Hx Substance Use: No - SURGICAL HISTORY Hx Surgeries: Yes Other/Comment: HEMOTHORAX W/ CHEST TUBES- RIGHT LUNG X 2, LEFT LUNG X 1. ROTATOR CUFF REPAIR RIGHT SIDE. - ANESTHESIA Hx Anesthesia: Yes Hx Anesthesia Reactions: No Hx Malignant Hyperthermia: No Meds Allergies/Adverse Reactions: Allergies Allergy/AdvReac Type Severity Reaction Status Date / Time No Known Allergies Allergy Verified 12/07/18 20:57 - Medications Medications: Current Medications Albuterol/Ipratropium (Duoneb 3 Mg/0.5 Mg (3 Ml) Ud) 3 ml INH RQ4 PRN PRN Reason: Shortness of Breath Atenolol (Tenormin) 50 mg PO DAILY ELADIA Last Admin: 12/08/18 10:56 Dose: 50 mg Meropenem 1 gm/ Sodium (Chloride) 100 mls @ 100 mls/hr IVPB Q8 ELADIA; Protocol Clindamycin Phosphate 600 mg/ (Sodium Chloride) 104 mls @ 104 mls/hr IVPB Q8 ELADIA; Protocol Results - Vital Signs Recent Vital Signs: Last Vital Signs Temp 97.6 F 12/08/18 16:56 Pulse 63 12/08/18 16:56 Resp 20 12/08/18 16:56 BP 106/60 12/08/18 16:56 Pulse Ox 98 12/08/18 16:56 - Labs Result Diagrams: 12/08/18 09:50 12/08/18 09:50 Labs: Laboratory Results - last 24 hr 12/07/18 12/07/18 12/07/18 21:30 21:30 21:30 WBC 7.1 D RBC 4.66 Hgb 12.3 Hct 37.6 MCV 80.7 D MCH 26.3 L MCHC 32.6 L RDW 18.3 H Plt Count 263 MPV 7.8 Neut % (Auto) 60.6 Lymph % (Auto) 29.2 [place] % (Auto) 8.1 Eos % (Auto) 1.6 Baso % (Auto) 0.5 Neut # (Auto) 4.3 Lymph # (Auto) 2.1 [place] # (Auto) 0.6 Eos # (Auto) 0.1 Baso # (Auto) 0.0 PT 11.6 INR 1.0 APTT 32.8 Sodium 141 Potassium 4.1 Chloride 103 Carbon Dioxide 27 Anion Gap 15 BUN 11 Creatinine 0.6 L Est GFR ( Amer) > 60 Est GFR (Non-Af Amer) > 60 Random Glucose 97 Calcium 9.1 Phosphorus Magnesium Total Bilirubin 0.3 AST 37 ALT 27 Alkaline Phosphatase 119 Troponin I 0.0130 Total Protein 8.0 Albumin 4.3 Globulin 3.7 Albumin/Globulin Ratio 1.1 Blood Type Antibody Screen BBK History Checked 12/07/18 12/08/18 12/08/18 21:30 09:50 09:50 WBC 5.2 RBC 4.53 Hgb 11.9 L Hct 36.2 MCV 79.9 L MCH 26.2 L MCHC 32.7 L RDW 18.6 H Plt Count 235 MPV 8.2 Neut % (Auto) 66.1 Lymph % (Auto) 23.4 [place] % (Auto) 8.4 Eos % (Auto) 1.6 Baso % (Auto) 0.5 Neut # (Auto) 3.4 Lymph # (Auto) 1.2 [place] # (Auto) 0.4 Eos # (Auto) 0.1 Baso # (Auto) 0.0 PT INR APTT Sodium 141 Potassium 4.2 Chloride 104 Carbon Dioxide 29 Anion Gap 12 BUN 8 L Creatinine 0.7 L Est GFR ( Amer) > 60 Est GFR (Non-Af Amer) > 60 Random Glucose 88 Calcium 9.0 Phosphorus 3.9 Magnesium 1.9 Total Bilirubin AST ALT Alkaline Phosphatase Troponin I Total Protein Albumin Globulin Albumin/Globulin Ratio Blood Type O POSITIVE Antibody Screen Negative BBK History Checked Patient has bt
[2018-12-09] MEDS: Clindamycin 600 MG in Sodium Chloride 0.9% 100 ML IVPB SCH ×3 (00:18→16:36)
[2018-12-09] MEDS: Meropenem 1 GM in Sodium Chloride 0.9% 100 ML IVPB SCH ×3 (01:38→16:37)
--- NOTE | 2018-12-09 21:27 | CP.PCM.HP ---
History of Present Illness - History of Present Illness History of Present Illness: This is a 23 y/o male with hx of Ehler's Danlos diagnosed when he was 15 y/o was admitted for worsening of cough and chest discomfort ., He was diagnosed to have pneumoinia about 3 weeks ago in [place] and was placed on IV antibiotics. Despite medications, he noted worsening of cough and sensation of having bloody material when coughing. He had undergone some surgical procedure in [place] with the intention of having right lower lobe lobectomy but had periop problems hence he was ultimately maintained on IV antibiotics. CT scan of the chest showed consolidation and abscess of the right middle lobe. Present on Admission - Present on Admission Any Indicators Present on Admission: No History of DVT/PE: No History of Uncontrolled Diabetes: No Urinary Catheter: No Decubitus Ulcer Present: No Past Patient History - Infectious Disease Hx of Infectious Diseases: None - Past Medical History & Family History Past Medical History?: Yes - Past Social History Smoking Status: Never Smoked - CARDIAC Hx Cardiac Disorders: Yes Hx Circulatory Problems: Yes (Vascular Liz Danlos) - PULMONARY Hx Respiratory Disorders: No - NEUROLOGICAL Hx Neurological Disorder: No - HEENT Hx HEENT Problems: No - RENAL Hx Chronic Kidney Disease: No - ENDOCRINE/METABOLIC Hx Endocrine Disorders: No - HEMATOLOGICAL/ONCOLOGICAL Other/Comment: LIZ-DANLOS SYNDROME - INTEGUMENTARY Hx Dermatological Problems: No - MUSCULOSKELETAL/RHEUMATOLOGICAL Hx Musculoskeletal Disorders: Yes Hx Falls: No Other/Comment: Vascular Liz Danlos x 8yrs - GASTROINTESTINAL Hx Gastrointestinal Disorders: No - GENITOURINARY/GYNECOLOGICAL Hx Genitourinary Disorders: No - PSYCHIATRIC Hx Substance Use: No - SURGICAL HISTORY Hx Surgeries: Yes Other/Comment: HEMOTHORAX W/ CHEST TUBES- RIGHT LUNG X 2, LEFT LUNG X 1. ROTATOR CUFF REPAIR RIGHT SIDE. - ANESTHESIA Hx Anesthesia: Yes Hx Anesthesia Reactions: No Hx Malignant Hyperthermia: No Meds Allergies/Adverse Reactions: Allergies Allergy/AdvReac Type Severity Reaction Status Date / Time No Known Allergies Allergy Verified 12/07/18 20:57 Physical Exam - Head Exam Head Exam: NORMAL INSPECTION - Eye Exam Eye Exam: Normal appearance - ENT Exam ENT Exam: Mucous Membranes Moist - Neck Exam Neck exam: Positive for: Normal Inspection - Respiratory Exam Respiratory Exam: Decreased Breath Sounds - Cardiovascular Exam Cardiovascular Exam: REGULAR RHYTHM - GI/Abdominal Exam GI & Abdominal Exam: Normal Bowel Sounds Results - Vital Signs Recent Vital Signs: Last Vital Signs Temp 97.6 F 12/09/18 17:20 Pulse 63 12/09/18 17:20 Resp 19 12/09/18 17:20 BP 108/70 12/09/18 17:20 Pulse Ox 97 12/09/18 17:20 - Labs Result Diagrams: 12/08/18 09:50 12/08/18 09:50 Assessment & Plan (1) Lung abscess Status: Acute (2) Liz-Danlos syndrome Status: Acute - Assessment and Plan (Free Text) Plan: IV antibiotics Pulmonay eval ID eval may need picc line
--- NOTE | 2018-12-09 21:41 | CP.PCM.PN ---
Subjective - Date & Time of Evaluation Date of Evaluation: 12/09/18 Time of Evaluation: 11:00 - Subjective Subjective: Patient is doing a lot better. No hemoptysis Has no fever. Objective - Vital Signs/Intake and Output Vital Signs (last 24 hours): Temp Pulse Resp BP Pulse Ox 97.6 F 63 19 108/70 97 12/09/18 17:20 12/09/18 17:20 12/09/18 17:20 12/09/18 17:20 12/09/18 17:20 - Medications Medications: Current Medications Albuterol/Ipratropium (Duoneb 3 Mg/0.5 Mg (3 Ml) Ud) 3 ml INH RQ4 PRN PRN Reason: Shortness of Breath Atenolol (Tenormin) 50 mg PO DAILY ELADIA Last Admin: 12/09/18 10:25 Dose: 50 mg Meropenem 1 gm/ Sodium (Chloride) 100 mls @ 100 mls/hr IVPB Q8 ELADIA; Protocol Last Admin: 12/09/18 16:37 Dose: 100 mls/hr Clindamycin Phosphate 600 mg/ (Sodium Chloride) 104 mls @ 104 mls/hr IVPB Q8 ELADIA; Protocol Last Admin: 12/09/18 16:36 Dose: 104 mls/hr - Labs Labs: 12/08/18 09:50 12/08/18 09:50 PT 11.6 Seconds (9.8-13.1) 12/07/18 21:30 INR 1.0 12/07/18 21:30 APTT 32.8 Seconds (25.6-37.1) 12/07/18 21:30 - Head Exam Head Exam: NORMAL INSPECTION - Eye Exam Eye Exam: Normal appearance - ENT Exam ENT Exam: Mucous Membranes Moist - Respiratory Exam Respiratory Exam: Decreased Breath Sounds, Clear to Ausculation Bilateral - Cardiovascular Exam Cardiovascular Exam: REGULAR RHYTHM - GI/Abdominal Exam GI & Abdominal Exam: Normal Bowel Sounds - Neurological Exam Neurological Exam: Awake, Oriented x3 Assessment and Plan (1) Lung abscess Status: Acute (2) Liz-Danlos syndrome Status: Acute - Assessment and Plan (Free Text) Plan: Cont meds Cont tx Cont IV antibiotics 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
[2018-12-10] MEDS: Clindamycin 600 MG in Sodium Chloride 0.9% 100 ML IVPB SCH ×3 (01:03→16:52)
[2018-12-10] MEDS: Meropenem 1 GM in Sodium Chloride 0.9% 100 ML IVPB SCH ×3 (02:15→16:49)
[2018-12-10] MEDS ORDERED: Lidocaine Hydrochloride 1% 10 ML ONE (11:26)
[2018-12-10 11:31] VITALS: RESP 18
--- NOTE | 2018-12-10 11:42 | PCM.SURG1 ---
Surgeon's Initial Post Op Note - Surgeon's Notes Surgeon: Daryn Zavala MD Digital Marketing Lead: NONE Type of Anesthesia: Local Pre-Operative Diagnosis: Infection Operative Findings: US shows patent right basilic vein. Post-Operative Diagnosis: Infection Operation Performed: Single lumen picc placement right arm, 34 cm. Tip is in the SVC. Specimen/Specimens Removed: NOne Estimated Blood Loss: EBL {In ML}: 2 Blood Products Given: N/A Drains Used: No Drains Post-Op Condition: Fair Date of Surgery/Procedure: 12/10/18 Time of Surgery/Procedure: 11:30
--- NOTE | 2018-12-10 18:46 | CP.PCM.PN ---
Subjective - Date & Time of Evaluation Date of Evaluation: 12/10/18 Time of Evaluation: 10:00 - Subjective Subjective: patient seen and examined at bedside. Interim events noted No complaints offered at this time denies cp/sob/fever/chills. available diagnostic data reviewed Review of Systems All systems: reviewed and no additional remarkable complaints except mentioned above Objective Vital Signs Stable - Constitutional Appears: Non-toxic, No Acute Distress Head Exam: NORMAL INSPECTION Eye Exam: Normal appearance Respiratory Exam: NORMAL BREATHING PATTERN Cardiovascular Exam: +S1, +S2 GI & Abdominal Exam: Soft Neurological Exam: Alert, Awake Psychiatric exam: Normal Affect, Normal Mood Skin Exam: Normal Color, Warm Assessment and Plan monitor vitals monitor labs Cont meds Cont tx consultants appreciated input for PICC today dispo planning rest of plan as ordered Objective - Vital Signs/Intake and Output Vital Signs (last 24 hours): Temp Pulse Resp BP Pulse Ox 97.6 F 66 18 110/69 99 12/10/18 16:07 12/10/18 16:07 12/10/18 16:07 12/10/18 16:07 12/10/18 16:07 - Medications Medications: Current Medications Albuterol/Ipratropium (Duoneb 3 Mg/0.5 Mg (3 Ml) Ud) 3 ml INH RQ4 PRN PRN Reason: Shortness of Breath Atenolol (Tenormin) 50 mg PO DAILY [facility] Last Admin: 12/10/18 09:16 Dose: Not Given Meropenem 1 gm/ Sodium (Chloride) 100 mls @ 100 mls/hr IVPB Q8 ELADIA; Protocol Last Admin: 12/10/18 16:49 Dose: 100 mls/hr Clindamycin Phosphate 600 mg/ (Sodium Chloride) 104 mls @ 104 mls/hr IVPB Q8 ELADIA; Protocol Last Admin: 12/10/18 16:52 Dose: 104 mls/hr - Labs Labs: 12/08/18 09:50 12/08/18 09:50 PT 11.6 Seconds (9.8-13.1) 12/07/18 21:30 INR 1.0 12/07/18 21:30 APTT 32.8 Seconds (25.6-37.1) 12/07/18 21:30 Assessment and Plan (1) Lung abscess Status: Acute (2) Liz-Danlos syndrome Status: Acute
[2018-12-10 23:54] VITALS: O2SAT 98
[2018-12-11] MEDS: Clindamycin 600 MG in Sodium Chloride 0.9% 100 ML IVPB SCH ×2 (00:38→09:26)
[2018-12-11] MEDS: Meropenem 1 GM in Sodium Chloride 0.9% 100 ML IVPB SCH ×2 (01:49→09:25)
[2018-12-11 08:34] VITALS: BP 117/66; PULSE 71; TEMP 97.7
--- NOTE | 2018-12-11 12:59 | CP.PCM.PCO ---
Assessment & Plan - Assessment and Plan (Free Text) Assessment: pt seen and examined doing well; denies sob, cough cp , fever or chills pt. to continue Invanz 1gm iv daily x 2 weeks; cont. Clindamycin 900 mg iv bid x 2 weeks s/p picc insertion d/w pt. who will come in bid x 2 weeks for iv abx instructed to have f/u CT chest f/u with pmd in 1 week above recs per ID d/w
--- NOTE | 2018-12-11 17:58 | RAD ---
Date of service: 12/11/2018 HISTORY: Pneumonia. COMPARISON: 12/07/2018 single-view chest. 12/07/2018 CT thorax. Summary of findings on the comparison examination: Pneumonic consolidation with large pulmonary abscess in the right lung. TECHNIQUE: Chest PA and lateral FINDINGS: LUNGS: Stable pulmonary parenchymal findings right lung better visualized on the CT scan. PLEURA: Small bilateral pleural effusions are unchanged. CARDIOVASCULAR: No aortic atherosclerotic calcification present. PICC line in satisfactory position a new finding compared to the prior study. The tip is in the SVC within 6 cm of the cavoatrial junction. Normal cardiac size. No pulmonary vascular congestion. OSSEOUS STRUCTURES: No significant abnormalities. VISUALIZED UPPER ABDOMEN: Normal. OTHER FINDINGS: None. IMPRESSION: Stable findings in the right lung. Satisfactory position of recently placed PICC line.
--- NOTE | 2018-12-12 13:18 | VASCULAR ---
PROCEDURE: Date of procedure: 12/10/2018 Procedure: 1. Placement of a right arm PICC with ultrasound and fluoroscopic guidance, CPT 25128 2. PICC tip confirmation with spot radiograph and is in the superior vena cava Medications: 1 percent lidocaine Total Fluoro time: 4.5 Seconds Radiation: 0.45 MGy EBL: 2 cc HISTORY: Infection requiring long-term IV antibiotics TECHNIQUE: Following informed consent and procedure time-out, the patient was placed supine on the interventional table and the right arm prepped and draped in the usual sterile fashion. Ultrasound showed a patent and compressible right basilic vein. After the skin was anesthetized with lidocaine, the basilic vein was accessed with micro micropuncture technique using ultrasound guidance. A guidewire was then advanced under fluoroscopic guidance into the superior vena cava. An image documenting ultrasound guidance for vascular access was permanently saved. The length of the single-lumen 4 Portuguese PICC was trimmed to 34 centimeters and advanced through a peel-away sheath. The PICC was position with tip of PICC confirm a spot radiograph the superior vena cava. The PICC was secured to the patient's skin. The PICC was flushed. A biopatch and sterile dressing was applied. IMPRESSION: Placement of a single-lumen 4 Portuguese PICC trimmed to 34 centimeters via right basilic vein. The tip of the PICC is confirmed with spot radiograph and is in the superior vena cava.
== END 2018-12-11 16:00 | disposition home or self-care (01) | DRG 178 ==
LOC: H.ER 20:55 → H.ERHOLD 23:56 → H.MEDSURG1 12-08 02:22
PROVIDERS: ADMIT Family Medicine; ATTEND Family Medicine
PROC: 02HV33Z Insertion of Infusion Device into Superior Vena Cava, Percutaneous Approach (ICD-10-PCS; principal; 2018-12-10)
DX: J85.1 Abscess of lung with pneumonia (principal); Q79.6 Ehlers-Danlos syndromes

== ENCOUNTER 2018-12-12 15:10 | Emergency (ER) | payer OTHER ==
[2018-12-12 15:10] VITALS: BMI 20.3
--- NOTE | 2018-12-12 16:08 | ED PDOC ---
HPI: Wound Care - HPI Time Seen by Provider: 12/12/18 15:33 Chief Complaint (Nursing): Wound Check Chief Complaint (Provider): PICCLINE Removal History Per: Patient Exam Limitations: no limitations Onset/Duration Of Symptoms: Persistent Current Symptoms Are (Timing): Still Present Additional Complaint(s): Pt presents to the ED requesting PICCLINE removal at the request of his PMD, Dr Huynh. Pt has been dx with a lung abscess,was admitted and discharged on IV abx and given a PICCLINE. Upon discharge his abx regimenim was changed to PO abx. A call to Dr Szymanski office confirmed this plan. Pt has no other medical complaints, no NVD, fever, headaches or other complaints. Past Medical History Reviewed: Historical Data, Nursing Documentation, Vital Signs Vital Signs: Last Vital Signs Temp 97.7 F 12/12/18 15:27 Pulse 102 H 12/12/18 15:27 Resp 18 12/12/18 15:27 BP 132/91 H 12/12/18 15:27 Pulse Ox 96 12/12/18 15:27 - Medical History PMH: Anemia, Pneumonia Denies: HIV, HTN (on atenolol for prevention only), Chronic Kidney Disease - Family History Family History: States: Unknown Family Hx - Immunization History Hx Influenza Vaccination: Yes - Home Medications Home Medications: Ambulatory Orders Medication Instructions Recorded Atenolol [Tenormin] 50 mg PO DAILY 10/18/18 Cefuroxime Axetil [Cefuroxime] 250 mg PO BID #28 tablet 12/12/18 Clindamycin [Cleocin] 300 mg PO Q6 #56 cap 12/12/18 - Allergies Allergies/Adverse Reactions: Allergies Allergy/AdvReac Type Severity Reaction Status Date / Time No Known Allergies Allergy Verified 12/12/18 15:20 Review of Systems ROS Statement: Except As Marked, All Systems Reviewed And Found Negative Skin: Positive for: Other (PICCLINE inserted in right bicep) Physical Exam - Reviewed Nursing Documentation Reviewed: Yes Vital Signs Reviewed: Yes - Physical Exam Appears: Positive for: Well, Non-toxic, No Acute Distress. Negative for: Uncomfortable Head Exam: Positive for: ATRAUMATIC, NORMAL INSPECTION Skin: Positive for: Normal Color, Warm, Dry. Negative for: Diaphoresis, Pallor, Rash (The placement has no drainage, discharge, bleeding, erythemity, red streaking or other signs of infection) - ECG O2 Sat by Pulse Oximetry: 96 Procedure: Wound Repair - Time Performed Time Performed: 16:05 - Time Out Time Out: Patient ID confirmed, Sterile procedures obs. - Procedure Procedure: Wound Repair: PICCLINE Removal - Consent Obtained Consent obtained: Verbal - Performed by Performed by: Mid-level Provider - Location Location:: Right, Arm (Sterile technic was followed. After obtaining consent from the patient, verifying his identification and the site of the wound, he was placed in the trendelenberg position, the dressing surrounding the PICC was removed and the single suture securing the line was cut using surgical scissors. The patient was told to hold his breath and the line was slowly removed from the site. The entire intact line was observed and there was minimal bleeding observed. A pressure was immediatley applied, the patient was told to release his breath and he was placed in a normal supine position. A sterile dressing was applied to the site. The patient tolerated the procedure well with no side effects or complaints and the entire line was visually sited as being removed. ) Medical Decision Making Medical Decision Making: I: PICCLINE removal P: remove piccline see procedure note. Disposition - Clinical Impression Clinical Impression: PICC (peripherally inserted central catheter) removal - Patient ED Disposition Is Patient to be Admitted: No Discussed With : Oren Greenwood Doctor Will See Patient In The: Office Counseled Patient/Family Regarding: Diagnosis, Need For Followup - Disposition Referrals: Oren Greenwood MD [Medical Doctor] - Disposition: Routine/Home Disposition Time: 16:18 Condition: STABLE Instructions: Peripherally-Inserted Central Catheter Removal
[2018-12-12 16:38] VITALS: BP 124/69; PULSE 94; RESP 16; TEMP 98.3; O2SAT 99
== END 2018-12-12 16:29 | disposition home or self-care (01) ==
LOC: H.ER 15:10
DX: Z45.2 Encounter for adjustment and management of vascular access device (principal)